=== PATIENT | male | born 1945 | race African-American/Black ===

== ENCOUNTER 2018-07-06 06:23 | Inpatient (IN) | payer MEDICARE, OTHER ==
[~2018-07-06] VITALS: Ht 180.3 cm; Wt 115.2 kg
--- NOTE | 2018-07-06 06:25 | NUR ---
PT BIB [facility] WITH A C/O DIFFUSED ABD PAIN SINCE 230. PT STATED THAT HE LAST ATE AT 0 AND THEN HAD ABD PAIN AT 2300. PT STATED THAT HE VOMITTED 2X'S AT 0100. PT TOOK CANNABIS OIL AT 0100 WITH NO RELIEF.
[2018-07-06] MEDS ORDERED: IV NS 0.9% 1,000 ML BAG IV ONE ×3 (06:30→08:00)
[2018-07-06] MEDS ORDERED: ONDANSETRON HCL/PF 4 MG/2 ML VIAL IVP ONE (06:30)
[2018-07-06] MEDS ORDERED: HYDROMORPHONE 1 MG/1 ML DISP.SYRIN ONE (06:30)
[2018-07-06] MEDS ORDERED: HYDROMORPHONE INJ 2 MG/ML DISP.SYRIN IV ONE (06:30)
[2018-07-06] MEDS ORDERED: ONDANSETRON HCL/PF 4 MG/2 ML VIAL ONE (06:30)
--- NOTE | 2018-07-06 06:43 | NUR ---
URINE SAMPLE OBTAINED AND SENT TO LAB. APPROX 50 ML DARK, TEA COLORED URINE OUTPUT NOTED. MADE AWARE.
--- NOTE | 2018-07-06 06:44 | NUR ---
PT'S IS AT THE BEDSIDE.
--- NOTE | 2018-07-06 06:55 | NUR ---
PT LEFT FOR CT VIA [facility]. PT C/O FEELING THIRSTY AND REC'D [address] DUNN.
[2018-07-06 07:09] LABS: BASOPHILS % (AUTO) 0.2 % (0.0-2.0); HEMATOCRIT 51 % (39-51); HEMOGLOBIN 16.8 g/dL (13.5-17.5); LYMPHOCYTES # (AUTO) 0.7 /CMM (0.8-4.8); LYMPHOCYTES % (AUTO) 3.2 % (20.0-44.0); MEAN CORPUSCULAR HGB CONC 33 g/dl (31.0-36.0); MEAN CORPUSCULAR VOLUME 91 fL (80-96); MONOCYTES # (AUTO) 0.6 /CMM (0.1-1.30); MONOCYTES % (AUTO) 2.9 % (2.0-12.0); NEUTROPHILS # (AUTO) 20.4 /CMM (1.8-8.9); NEUTROPHILS % (AUTO) 93.7 % (43.0-81.0); PLATELET COUNT (AUTO) 250 /CMM (150-450); RED BLOOD CELL COUNT(AUTO) 5.61 MIL/uL (4.5-6.0); WHITE BLOOD COUNT (AUTO) 21.8 K/uL (4.3-11.0)
--- NOTE | 2018-07-06 07:16 | NUR ---
REPORT GIVEN TO VINCENZO BENSON FOR TIMA.
--- NOTE | 2018-07-06 07:18 | NUR ---
received report from keerthi torres nurse for evelin.
[2018-07-06 07:24] LABS: CALCIUM, SERUM 9.9 mg/dL (8.5-10.1); CARBON DIOXIDE 24 mmol/L (21-32); CHLORIDE 98 mmol/L (98-107); CREATININE 2.2 mg/dL (0.6-1.3); GLUCOSE 232 mg/dL (74-106); POTASSIUM 4.2 mmol/L (3.5-5.1); SODIUM SERUM 136 mmol/L (136-145); UREA NITROGEN, BLOOD 22 mg/dL (7-18)
[2018-07-06 07:31] LABS: ALANINE AMINOTRANSFERASE 18 U/L (12-78); ALBUMIN 4.1 g/dL (3.4-5.0); ALKALINE PHOSPHATASE 90 U/L (46-116); ASPARTATE AMINOTRANSFERASE 16 U/L (15-37); BILIRUBIN,DIRECT 0.1 mg/dL (0.0-0.2); BILIRUBIN,TOTAL 0.7 mg/dL (0.2-1.0); LIPASE 397 U/L (73-393); TOTAL PROTEIN, SERUM 8.7 g/dL (6.4-8.2)
[2018-07-06 07:48] LABS: APPEARANCE,URINE CLOUDY (CLEAR); BILIRUBIN,URINE NEGATIVE (NEGATIVE); BLOOD, URINE 3+ Ery/uL (NEGATIVE); COLOR,URINE BROWN (YELLOW); KETONES,URINE TRACE (NEGATIVE); LEUKOCYTE ESTERASE ,URINE 1+ (NEGATIVE); NITRITE, URINE NEGATIVE (NEGATIVE); PH,URINE 6.5 (5.0-8.0); PROTEIN,URINE 3+ mg/dl (NEGATIVE); UGLUCOSE NEGATIVE (NEGATIVE)
--- NOTE | 2018-07-06 07:50 | NUR ---
Paged Dr. Gil for admission
--- NOTE | 2018-07-06 07:50 | NUR ---
Paged Dr. Doherty for consult
--- NOTE | 2018-07-06 07:51 | NUR ---
DR. DUNN AT BEDSIDE AND SPOKE TO THE PATIENT REGARDING CT RESULT AND OFFERED NGT AND PER PATIENT TO HOLD OFF FOR THE NGT FOR NOW, ACCORDING TO THE PATIENT IT CAUSE HIM ANXIETY, PAIN AND CHOKING FEELING.
[2018-07-06 07:59] LABS: BACTERIA,URINE Few /HPF (None Seen); RBC,URINE TOO NUMEROUS TO COUN /HPF (0-2); SQUAMOUS EPITHELIAL CELL,UR Rare /HPF (None Seen)
[2018-07-06] MEDS ORDERED: PANTOPRAZOLE 40 MG VIAL IV ONE (08:00)
[2018-07-06] MEDS ORDERED: PIPERACILLIN /TAZOBACTAM 3.375 G in IV D5W 50 ML IV ONE (08:00)
[2018-07-06] MEDS ORDERED: PANTOPRAZOLE 40 MG VIAL ONE (08:02)
[2018-07-06] MEDS ORDERED: LOSA50TA39 PO (08:19)
[2018-07-06] MEDS ORDERED: CLOP75TA15 PO (08:19)
[2018-07-06] MEDS ORDERED: AMLO5TAB7 PO (08:19)
--- NOTE | 2018-07-06 08:55 | NUR ---
REPORT GIVEN TO BRIDGET LOYA FOR TIMA.
--- NOTE | 2018-07-06 08:59 | NUR ---
WHEELED PATIENT VIA GURNEY TO ROOM 104-1.
[2018-07-06] MEDS ORDERED: MAG HYDROX/AL HYDROX/SIMETH 30 ML UDC PO PRN (09:00)
[2018-07-06] MEDS ORDERED: ACETAMINOPHEN 325 MG TABLET PO PRN (09:00)
[2018-07-06] MEDS: PANTOPRAZOLE 40 MG VIAL IV SCH (09:00)
[2018-07-06] MEDS ORDERED: HYDROMORPHONE 1 MG/1 ML DISP.SYRIN IV PRN (09:00)
[2018-07-06] MEDS ORDERED: MAGNESIUM HYDROXIDE 30 ML UDC PO PRN (09:00)
[2018-07-06] MEDS ORDERED: MORPHINE SULFATE INJ 2 MG/ML DISP.SYRIN IV PRN (09:00)
[2018-07-06] MEDS ORDERED: HYDROCODONE/APAP 5/325MG 1 EACH TABLET PO PRN (09:00)
[2018-07-06] MEDS ORDERED: Z GUARD REMEDY 2 OZ OINT TP PRN (09:00)
[2018-07-06] MEDS ORDERED: ZOLPIDEM TARTRATE 5 MG TABLET PO PRN (09:00)
--- NOTE | 2018-07-06 09:16 | NUR ---
MS DROP SHIPMENT CLERK NOTES RECEIVED PT FROM ER NURSE IN STABLE CONDITION. PT WILL BE ADMITTED FRO A SMALL BOWEL OBSTRUCTION UNDER DR. ORJAS. ADMISSION ORDER ACKNOWLEDGED. PT IS A/O X3. NO SOB NOTED. HE IS ON RA AND SATING WELL. HE COMPLAINS OF AN ACHING UPPER ABDOMINAL PAIN RATED AN 8/10. WILL ADMINISTER PRN PAIN MEDICATION. IV TO LEFT AC NOTED TO BE PATENT AND INTACT. NO REDNESS OR SIGNS OF INFILTRATION NOTED. PT FINISHING THE REMAINDER OF THE NS BOLUS STARTED IN ER. WILL BEGIN ORDERED IV FLUIDS ONCE COMPLETE. PT ORIENTED TO ROOM AND USE OF CALL LIGHT. BELONGINGS VERIFIED BY ANIMAL NURSERY WORKER. BED IN LOW LOCKED POSITION, SIDE RAILS UP X2, CALL LIGHT WITHIN REACH. PT'S AT BEDSIDE. WILL CONTINUE ADMISSION PROCESS AND AWAIT FOR ANY FURTHER ORDERS FROM THE
[2018-07-06] MEDS: ONDANSETRON HCL/PF 4 MG/2 ML VIAL IVP PRN (09:30)
[2018-07-06] MEDS: IV D5/0.45 NACL 1,000 ML IV PRN (09:30)
--- NOTE | 2018-07-06 10:34 | NUR ---
MS RN NOTES: US DUPLEX ORDER UPON PHYSICAL ASSESSMENT, IT WAS NOTED THAT THE PT'S LOWER LEFT EXTREMITY IS SIGNIFICANTLY LARGER THAT HIS RIGHT, TENDER, AND WARM. HE DENIES ANY PAIN TO THE EXTREMITY, HOWEVER REPORTS OF DVT HISTORY. DR. ROJAS CALLED AND GAVE TELEPHONE ORDER FOR STAT US DUPLEX OF THAT LOWER EXTREMITY
[2018-07-06 12:00] VITALS: BP 150/89
--- NOTE | 2018-07-06 12:25 | NUR ---
MS RN NOTES: US DUPLEX RESULTS RADIOLOGIST CALLED AND NOTIFIED ME THAT PT HAS A LARGE DVT IN HIS LOWER LEFT EXTREMITY. DR ROJAS WAS CALLED AND GAVE A TELEPHONE ORDER FOR "LOVENOX TO BE GIVEN NOW THEN DAILY". PER MD, "HAVE THE PHARMACY ARRANGE THE DOSAGE"
[2018-07-06] MEDS: ENOXAPARIN SODIUM 60 MG/0.6 ML DISP.SYRIN SQ SCH (14:12)
--- NOTE | 2018-07-06 15:05 | NUR ---
PT TAKEN DOWN FOR SMALL BOWEL FOLLOW THROUGH IN STABLE CONDITION
[2018-07-06] MEDS ORDERED: DIATR MEGLU/DIATRIZOATE SODIUM 120 ML BOTTLE (GASTROGRAPHIN) ONE (15:07)
[2018-07-06] MEDS ORDERED: HYDROMORPHONE INJ 0.5 MG/0.5 ML SYRINGE IV PRN (15:30)
[2018-07-06] MEDS: HYDROMORPHONE 1 MG/1 ML DISP.SYRIN IV PRN ×2 (17:46→21:38)
--- NOTE | 2018-07-06 18:14 | NUR ---
PT BACK FROM SMALL BOWEL FOLLOW THROUGH IN STABLE CONDITION,. WILL AWAIT FOR RESULTS AND NOTIFY MD ACCORDINGLY
[2018-07-06 18:30] VITALS: BP 156/89
--- NOTE | 2018-07-06 19:05 | NUR ---
MS/RN INITIAL NOTES RECEIVED PT IN BED, FAMILY AT BEDSIDE. A/OX4, ON ROOM AIR, NO SOB NOTED. NO C/O PAIN AT THIS TIME. WITH ONGOING IVF D5 1/2 NS AT 125 ML/HR INFUSING WELL ON LAC G18 IV LINE. HOB ELEVATED. SAFETY MEASURES IN PLACED. CALL LIGHT WITHIN EASY REACH. PT ON NPO, PT AWARE. PT C/O BEING THIRSTY. ORAL CARE OFFERED AND RENDERED. WILL CONT TO MONITOR
[2018-07-06 20:00] VITALS: BP 160/96
[2018-07-06] MEDS ORDERED: MENTHOL/CETYLPYRD (CEPACOL) 1 LOZ LOZENGE PO PRN (20:30)
[2018-07-06] MEDS ORDERED: CLOPIDOGREL BISULFATE 75 MG TABLET PO SCH (20:30)
--- NOTE | 2018-07-06 20:33 | NUR ---
RN NOTES SEEN AND EXAMINED BY DR ROJAS, ALL QUESTIONS AND CONCERNS ANSWERED BY MD. CLARIFIED WITH MD IF OK TO GIVE MEDS. MD ORDERED: NPO EXCEPT MEDS
[2018-07-06] MEDS: AMLODIPINE BESYLATE 5 MG TABLET PO SCH (20:52)
[2018-07-07] MEDS: ONDANSETRON HCL/PF 4 MG/2 ML VIAL IVP PRN (00:07)
--- NOTE | 2018-07-07 02:00 | NUR ---
MS/RN NOTES PATIENT DENIES PAIN, NO NAUSEA AND VOMITING EPISODE, BLADDER DISTENDED.
[2018-07-07] MEDS: ENOXAPARIN SODIUM 60 MG/0.6 ML DISP.SYRIN SQ SCH ×2 (02:18→13:26)
[2018-07-07] MEDS: HYDROMORPHONE 1 MG/1 ML DISP.SYRIN IV PRN ×2 (05:13→09:58)
[2018-07-07] MEDS: IV D5/0.45 NACL 1,000 ML IV PRN ×2 (05:22→17:48)
[2018-07-07 06:13] LABS: BASOPHILS % (AUTO) 0.2 % (0.0-2.0); EOSINOPHILS % (AUTO) 0.1 % (0.0-6.0); HEMATOCRIT 48 % (39-51); HEMOGLOBIN 15.3 g/dL (13.5-17.5); LYMPHOCYTES # (AUTO) 0.7 /CMM (0.8-4.8); LYMPHOCYTES % (AUTO) 5.2 % (20.0-44.0); MEAN CORPUSCULAR HGB CONC 32 g/dl (31.0-36.0); MEAN CORPUSCULAR VOLUME 92 fL (80-96); MONOCYTES # (AUTO) 0.8 /CMM (0.1-1.30); MONOCYTES % (AUTO) 6.2 % (2.0-12.0); NEUTROPHILS # (AUTO) 11.6 /CMM (1.8-8.9); NEUTROPHILS % (AUTO) 88.3 % (43.0-81.0); PLATELET COUNT (AUTO) 237 /CMM (150-450); WHITE BLOOD COUNT (AUTO) 13.1 K/uL (4.3-11.0)
[2018-07-07 06:29] LABS: CALCIUM, SERUM 8.9 mg/dL (8.5-10.1); CARBON DIOXIDE 29 mmol/L (21-32); CHLORIDE 104 mmol/L (98-107); CREATININE 2.4 mg/dL (0.6-1.3); GLUCOSE 165 mg/dL (74-106); LIPASE 167 U/L (73-393); PHOSPHORUS 4.1 mg/dL (2.5-4.9); POTASSIUM 5.2 mmol/L (3.5-5.1); SODIUM SERUM 141 mmol/L (136-145); UREA NITROGEN, BLOOD 31 mg/dL (7-18)
[2018-07-07 07:04] LABS: CHOLESTEROL 172 mg/dL (<200); HDL CHOLESTEROL 41 mg/dL (40-60); LDL 108 mg/dL (0-99); TRIGLYCERIDES 121 mg/dL (30-150)
--- NOTE | 2018-07-07 07:19 | NUR ---
RN NOTES PT IN STABLE CONDITION. ALL NEEDS ANTICIPATED. WILL ENDORSED TO AM SHIFT RN FOR TIMA
--- NOTE | 2018-07-07 07:46 | NUR ---
RN NOTE: PATIENT RECEIVED ALERT AWAKE ORIENTED X 4. ON ROOM AIR, NO BREATHING DISTRESS NOTED . DENIES PAIN & DISCOMFORT AT THIS TIME. DENIES NAUSEA/VOMITING. SAFETY MEASURES OBSERVED. PATIENT REFUSED TO HAVE BOTH UPPER SIDE RAILS UP. ENCOURAGE TO USE CALL LIGHT FOR ASSISTANCE. NPO EXCEPT ICE CHIPS. CONTINUE TO MONITOR.
[2018-07-07 08:00] VITALS: BP 172/87
[2018-07-07] MEDS: AMLODIPINE BESYLATE 5 MG TABLET PO SCH (08:16)
[2018-07-07] MEDS: PANTOPRAZOLE 40 MG VIAL IV SCH (08:16)
[2018-07-07 09:20] VITALS: BP 165/86
--- NOTE | 2018-07-07 10:59 | NUR ---
RN NOTE: DR. MOYER MADE AWARE ABOUT SBP 170-160S. CONTINUE TO MONITOR, NO NEW ORDERS.
--- NOTE | 2018-07-07 12:54 | NUR ---
RN NOTE: SEEN & EXAMINE BY DR. WILLIS AT BEDSIDE. OK TO START CLEAR LIQUIDS & ADVANCE DIET TOLERATED PER DR. WILLIS. PATIENT HAD LARGE BM WITH LOOSE & SOLID TYPE. DENIES NAUSEA AT THIS TIME. NO NEED FOR SURGICAL INTERVENTION AT THIS TIME. CONTINUE TO MONITOR.
[2018-07-07] MEDS ORDERED: HYDROMORPHONE 1 MG/1 ML DISP.SYRIN IV PRN (13:00)
[2018-07-07 16:00] VITALS: BP 159/65
[2018-07-07 20:00] VITALS: BP 161/55
--- NOTE | 2018-07-07 20:00 | NUR ---
MS/RN OPENING NOTES RECEIVED PATIENT IN BED, AWAKE, ALERTX3, ABLE TO VERBALIZE NEEDS, RESPIRATIONS EVEN AND UNLABORED, SKIN WARM TO TOUCH, ABLE TO AMBULATE WITH SUPERVISION, FAMILY AT BEDSIDE AND INVOLVE WITH CARE, DISCUSSED PLAN OF CARE, FAMILY AND PATIENT DISCUSSED CONCERNS REGARDING LOVENOX THAT TO HOLD AT THIS TIME PATIETN WILL BE EVALUATED BY DR BROWNE FOR IVC FILTER., WILL INFORM CHARGE NURSE ABOUT CONCERNS, CALL LIGHTS WITHIN REACH, BED LOCKED. IV SITE PATENT W/ NO S/S OF INFILTRATION, IV FLUIDS RUNNING. RECEIVED ENDORSEMENT FROM AM RN FOR TIMA.
[2018-07-08] VITALS: BP 161/55
[2018-07-08] MEDS: ENOXAPARIN SODIUM 60 MG/0.6 ML DISP.SYRIN SQ SCH (01:50)
--- NOTE | 2018-07-08 02:11 | NUR ---
MS/RN NOTES DISCUSSED WITH PATIENT PROS AND CONS OF LOVENOX INJECTIONS. PATIENT VERBALIZE UNDERSTANDING. REPOR
[2018-07-08 04:00] VITALS: BP 154/61
--- NOTE | 2018-07-08 06:27 | NUR ---
MS/RN NOTES'PATIETN ABLE TO SLEEP INTERMITENTLY, ALERT, ORIENTED, ABLE TO MAKE NEEDS KNOWNM KEPT COMFORTABLE, DISCUSSED PLAN OF CARE, MONITORING FOR ANY CHANGES. CALL LIGHTS WITHIN REACH, BED LOCKED,
[2018-07-08 06:52] LABS: BASOPHILS # (AUTO) 0.1 /CMM (0.0-0.2); BASOPHILS % (AUTO) 0.6 % (0.0-2.0); EOSINOPHILS % (AUTO) 2.4 % (0.0-6.0); HEMATOCRIT 42 % (39-51); HEMOGLOBIN 13.2 g/dL (13.5-17.5); LYMPHOCYTES # (AUTO) 1.8 /CMM (0.8-4.8); LYMPHOCYTES % (AUTO) 18.5 % (20.0-44.0); MEAN CORPUSCULAR HGB CONC 32 g/dl (31.0-36.0); MEAN CORPUSCULAR VOLUME 93 fL (80-96); MONOCYTES # (AUTO) 0.8 /CMM (0.1-1.30); MONOCYTES % (AUTO) 8.1 % (2.0-12.0); NEUTROPHILS # (AUTO) 6.7 /CMM (1.8-8.9); NEUTROPHILS % (AUTO) 70.4 % (43.0-81.0); PLATELET COUNT (AUTO) 177 /CMM (150-450); RED BLOOD CELL COUNT(AUTO) 4.52 MIL/uL (4.5-6.0); WHITE BLOOD COUNT (AUTO) 9.5 K/uL (4.3-11.0)
[2018-07-08 07:04] LABS: CALCIUM, SERUM 8.3 mg/dL (8.5-10.1); CARBON DIOXIDE 24 mmol/L (21-32); CHLORIDE 105 mmol/L (98-107); GLUCOSE 111 mg/dL (74-106); MAGNESIUM 1.9 mg/dL (1.8-2.4); PHOSPHORUS 3.1 mg/dL (2.5-4.9); POTASSIUM 4.8 mmol/L (3.5-5.1); SODIUM SERUM 138 mmol/L (136-145); UREA NITROGEN, BLOOD 29 mg/dL (7-18)
--- NOTE | 2018-07-08 07:30 | NUR ---
RN NOTES RECEIVED PATIENT IN BED, SOUNDLY ASLEEP, WILL ASSESS ORIENTATION IN A LITTLE LATER WHEN PATIENT FULLY AWAKES, ON ROOM AIR. NO SIGN OF PAIN NOTED AT THIS TIME. IVL TO THE L HAND, WITH ONGOING IVF D5 1/2 NS AT 125 ML/HR INFUSING WELL. SAFETY MEASURES OBSERVED AND MAINTAINED AND IN PLACED. CALL LIGHT WITHIN EASY REACH. PATIENT ON NPO. WILL CONTINUE TO MONITOR PATIENT
[2018-07-08 08:00] VITALS: BP 152/75
[2018-07-08] MEDS: AMLODIPINE BESYLATE 5 MG TABLET PO SCH (09:21)
[2018-07-08] MEDS: PANTOPRAZOLE 40 MG VIAL IV SCH (09:21)
[2018-07-08] MEDS: CEFTRIAXONE 1 G in IV D5W 50 ML IV SCH (11:12)
[2018-07-08 16:00] VITALS: BP_SYST 143; BP_SYST 152; BP_DIAS 65; BP_DIAS 75
[2018-07-08] MEDS: APIXABAN 5 MG TABLET PO SCH (18:10)
--- NOTE | 2018-07-08 19:20 | NUR ---
RN INITIAL NOTES Patient received sitting up in bed, watching TV. Alert, oriented x 4. Breathing even and unlabored. Not in any distress. No complaints of pain or discomfort as of this time. IV site on L hand g#22 intact and patent, S/L. Call goncalves within reach. Bed in low, locked position. Will continue to monitor accordingly
--- NOTE | 2018-07-08 19:36 | NUR ---
RN NOTES ENDORSED PATIENT FOR CONTINUITY OF CARE. NO CHANGES THE WHOLE SHIFT. ALL NURSING NEEDS ATTENDED AND MET. SAFETY MEASURES KEPT IN PLACE. CALL LIGHT WITHIN REACH AT ALL TIMES
[2018-07-08 20:00] VITALS: BP 113/62
--- NOTE | 2018-07-08 20:00 | NUR ---
RN NOTES Heart rate taken by palpation, 49bpm. As per morning RN report, has been aware.
--- NOTE | 2018-07-08 21:30 | NUR ---
RN NOTES Noted that patient's IV line as off. As per patient, as he was washing his hands, he noticed that it already came off. Explained to him that I needed to put a new IV line in. Patient refused. As per patient," I don't want to be poked. I've been poked so many times since I got here. I'm going home tomorrow, anyway." Charge nurse made aware.
[2018-07-09 04:00] VITALS: BP 158/81
--- NOTE | 2018-07-09 06:47 | NUR ---
MS RN CLOSING NOTES Patient in bed, alert, oriented x 4. Breathing even and unlabored. Not in any distress. No complaints as of this time. All needs attended to. Call goncalves within reach. Bed in low, locked position. Will endorse continuity of care to oncoming RN
[2018-07-09 08:00] VITALS: BP 186/70
[2018-07-09 08:25] VITALS: BP 185/75
[2018-07-09] MEDS: AMLODIPINE BESYLATE 5 MG TABLET PO SCH (08:25)
--- NOTE | 2018-07-09 08:25 | NUR ---
Elevated BP, patient appears comfortable, denies pain, no complaint of headache, no N/V. Am meds given, will cont to monitor.
[2018-07-09] MEDS: APIXABAN 5 MG TABLET PO SCH (08:29)
--- NOTE | 2018-07-09 08:30 | NUR ---
MS RN INITIAL NOTES Patient is awake, sitting up in bed. Had breakfast with good appetite. Patient ambulates independently, denies pain. IVF not infusing, per report due to patient's refusal. Maintained safety, will cont to monitor.
[2018-07-09] MEDS: PANTOPRAZOLE 40 MG VIAL IV SCH (09:00)
[2018-07-09 09:39] VITALS: BP 176/76
--- NOTE | 2018-07-09 09:39 | NUR ---
BP still elevated 176/[address] Nieto, will see patient per MD.
[2018-07-09 11:28] LABS: BASOPHILS % (AUTO) 0.2 % (0.0-2.0); EOSINOPHILS % (AUTO) 1.7 % (0.0-6.0); HEMATOCRIT 41 % (39-51); HEMOGLOBIN 13.1 g/dL (13.5-17.5); LYMPHOCYTES % (AUTO) 15.9 % (20.0-44.0); MEAN CORPUSCULAR HGB CONC 32 g/dl (31.0-36.0); MEAN CORPUSCULAR VOLUME 92 fL (80-96); MONOCYTES # (AUTO) 0.5 /CMM (0.1-1.30); MONOCYTES % (AUTO) 7.9 % (2.0-12.0); NEUTROPHILS # (AUTO) 4.8 /CMM (1.8-8.9); NEUTROPHILS % (AUTO) 74.3 % (43.0-81.0); PLATELET COUNT (AUTO) 177 /CMM (150-450); RED BLOOD CELL COUNT(AUTO) 4.47 MIL/uL (4.5-6.0); WHITE BLOOD COUNT (AUTO) 6.4 K/uL (4.3-11.0)
[2018-07-09] MEDS: CEFTRIAXONE 1 G in IV D5W 50 ML IV SCH (11:37)
[2018-07-09 11:42] LABS: CALCIUM, SERUM 7.9 mg/dL (8.5-10.1); CARBON DIOXIDE 23 mmol/L (21-32); CHLORIDE 103 mmol/L (98-107); CREATININE 1.8 mg/dL (0.6-1.3); GLUCOSE 156 mg/dL (74-106); MAGNESIUM 1.9 mg/dL (1.8-2.4); PHOSPHORUS 3.1 mg/dL (2.5-4.9); SODIUM SERUM 137 mmol/L (136-145); UREA NITROGEN, BLOOD 22 mg/dL (7-18)
[2018-07-09] MEDS: IV D5/0.45 NACL 1,000 ML IV PRN (11:52)
[2018-07-09 12:00] VITALS: BP 159/70
[2018-07-09] MEDS ORDERED: APIX5TAB PO (12:20)
--- NOTE | 2018-07-09 13:59 | NUR ---
MS RN DISCHARGED Patient has been cleared for discharge home by MD. Ambulates independently, skin intact. Patient is seen by Dr. Nieto, discussed progress with the daughter on the phone. Discharge instruction, new prescription explained to patient and , instructed to follow up with primary care physician in 1 week, verbalized understanding. Belongings check by [employer] DEPARTMENT CHAIR and send with the upon DC. Patient left hosp in stable condition via private car, accompanied by .
== END 2018-07-09 14:00 | disposition home or self-care (01) | DRG 388 ==
LOC: ER 06:25 → MEDSG1 08:31
PROVIDERS: ADMIT Student in an Organized Health Care Education/Training Program; ATTEND Family Medicine
DX: K56.699 Other intestinal obstruction unspecified as to partial versus complete obstruction (principal); N17.0 Acute kidney failure with tubular necrosis; E87.2 Acidosis; I82.412 Acute embolism and thrombosis of left femoral vein; I82.432 Acute embolism and thrombosis of left popliteal vein; I10 Essential (primary) hypertension; Z79.01 Long term (current) use of anticoagulants; D72.829 Elevated white blood cell count, unspecified; Z91.14 Patient's other noncompliance with medication regimen; Z90.5 Acquired absence of kidney; Z86.79 Personal history of other diseases of the circulatory system; R73.9 Hyperglycemia, unspecified
CPT/HCPCS: 36415; 74018; 74250-TC; 80048-TC; 80061-TC; 80076-TC; 81000-TC; 83605-TC; 83690-TC; 83735-TC; 84100-TC; 84484-TC; 85025-TC; 87040-TC; 87081-TC; 87086-TC; 93971-TC; A4606; C9113; G0378; J0696; J1170; J1650; J2405; J2543; J3490; J7030; J7060; Q9963; Z7610

== ENCOUNTER 2020-01-25 18:27 | Emergency (ER) | payer MEDICARE, OTHER ==
[~2020-01-25] VITALS: Ht 188 cm; Wt 117.9 kg
[~2020-01-25 18:27] MED LIST: AMLO5TAB9 PO; APIX5TAB PO; LOSA50TA39 PO
--- NOTE | 2020-01-25 18:30 | NUR ---
BIB FAMILY C/O R LEG PAIN SINCE YESTERDAY, PT IS AAOX4, NOT IN RESPIRATORY DISTRESS, V/S STABLE, KEPT RESTED AND COMFORTABLE, WILL CONTINUE TO MONITOR.
--- NOTE | 2020-01-25 18:45 | NUR ---
AT BEDSIDE FOR EVAL.
[2020-01-25] MEDS ORDERED: HYDROCODONE/APAP 5/325MG 1 EACH TABLET ONE ×2 (18:55→20:19)
[2020-01-25] MEDS ORDERED: ONDANSETRON 4 MG TAB.RAPDIS ONE (18:55)
[2020-01-25] MEDS ORDERED: HYDROCODONE/APAP 5/325MG 1 EACH TABLET PO ONE ×2 (19:00→20:30)
[2020-01-25] MEDS ORDERED: ONDANSETRON 4 MG TAB.RAPDIS SL ONE (19:00)
--- NOTE | 2020-01-25 19:09 | NUR ---
Took over care. Awaiting deplex venous.
[2020-01-25 19:11] LABS: BASOPHILS # (AUTO) 0.1 /CMM (0.0-0.2); BASOPHILS % (AUTO) 0.7 % (0.0-2.0); EOSINOPHILS % (AUTO) 0.6 % (0.0-6.0); HEMATOCRIT 46 % (39-51); HEMOGLOBIN 14.5 g/dL (13.5-17.5); LYMPHOCYTES # (AUTO) 0.9 /CMM (0.8-4.8); LYMPHOCYTES % (AUTO) 6.1 % (20.0-44.0); MEAN CORPUSCULAR HGB CONC 32 g/dl (31.0-36.0); MEAN CORPUSCULAR VOLUME 90 fL (80-96); MONOCYTES # (AUTO) 0.7 /CMM (0.1-1.30); MONOCYTES % (AUTO) 4.8 % (2.0-12.0); NEUTROPHILS # (AUTO) 12.7 /CMM (1.8-8.9); NEUTROPHILS % (AUTO) 87.8 % (43.0-81.0); PLATELET COUNT (AUTO) 270 /CMM (150-450); RED BLOOD CELL COUNT(AUTO) 5.04 MIL/uL (4.5-6.0); WHITE BLOOD COUNT (AUTO) 14.4 K/uL (4.3-11.0)
--- NOTE | 2020-01-25 19:25 | NUR ---
VENOUS DUPLEX AT BEDSIDE
[2020-01-25 19:30] LABS: CALCIUM, SERUM 8.8 mg/dL (8.5-10.1); CARBON DIOXIDE 22 mmol/L (21-32); CHLORIDE 102 mmol/L (98-107); CREATININE 1.7 mg/dL (0.6-1.3); GLUCOSE 158 mg/dL (74-106); POTASSIUM 4.3 mmol/L (3.5-5.1); SODIUM SERUM 134 mmol/L (136-145); UREA NITROGEN, BLOOD 21 mg/dL (7-18)
--- NOTE | 2020-01-25 19:46 | NUR ---
PT IS POSITIVE FOR DVT LEFT THIGH
[2020-01-25] MEDS ORDERED: APIXABAN 2.5 MG TABLET PO STA (20:53)
--- NOTE | 2020-01-25 21:04 | NUR ---
CALLED FOR CORINNE
[2020-01-25] MEDS ORDERED: APIXABAN 5 MG TABLET ONE (21:14)
--- NOTE | 2020-01-25 21:24 | NUR ---
PT STATED HE TOOK ELIQUIS. AWARE.
[2020-01-25 21:25] VITALS: BP 151/73
--- NOTE | 2020-01-25 21:25 | NUR ---
Patient discharged to home in stable condition. Written and verbal after care instructions given. Patient verbalizes understanding of instruction and RX. Pt ambulated with steady gait.
== END 2020-01-25 21:25 | disposition home or self-care (01) ==
LOC: ER 18:27
DX: I82.412 Acute embolism and thrombosis of left femoral vein (principal); M79.604 Pain in right leg; I10 Essential (primary) hypertension; Z98.890 Other specified postprocedural states; Z95.5 Presence of coronary angioplasty implant and graft; Z79.899 Other long term (current) drug therapy
CPT/HCPCS: 36415; 80048; 85025; 85730; 93970; 99284; Q0162